=== PATIENT | male | born 1995 | race African-American/Black ===

== ENCOUNTER 2017-08-28 18:20 | Emergency (ER) | payer SELFPAY ==
[~2017-08-28] VITALS: Ht 157.5 cm; Wt 82.0 kg
[2017-08-28 18:35] VITALS: BP 139/85
== END 2017-08-28 21:24 | disposition home or self-care (01) ==
LOC: ER 19:28
DX: J06.9 Acute upper respiratory infection, unspecified (principal)
CPT/HCPCS: 87070; 87430; 99283